=== PATIENT | female | born 1960 | race Hispanic/Latino ===

== ENCOUNTER 2018-04-12 07:50 | Outpatient (CLI) | payer OTHER ==
--- NOTE | 2018-04-12 09:59 | MRI ---
MRI LEFT KNEE: 04/12/2018 PROVIDED CLINICAL HISTORY: Left knee pain. FINDINGS: The anterior cruciate ligament, posterior cruciate ligament, medial collateral ligament, and lateral collateral ligamentous complex demonstrates an intact MR appearance, as does the extensor mechanism. There is apparent grade 3 signal involving the anterior horn-body junction of the medial meniscus, se en only on the coronal sequences. The lateral meniscus demonstrates no evidence for tear. No focal articular cartilage defect is apparent. The amount of fluid within the knee joint appears physiologic. No focal concerning regional marrow or muscular signal abnormality is apparent. IMPRESSION: Findings suspicious for a nondisplaced tear involving the anterior horn-body junction of the medial m eniscus. POS: [facility]KEN[facility]
== END 2018-04-12 07:51 | disposition home or self-care (01) ==
LOC: MRI 07:50
PROVIDERS: ATTEND Orthopaedic Surgery
DX: M23.92 Unspecified internal derangement of left knee (principal)